=== PATIENT | female | born 1995 | race African-American/Black ===

== ENCOUNTER 2018-08-10 05:06 | Day surgery (SDC) | payer OTHER ==
[2018-08-07 13:40] VITALS: BMI 38.2
[2018-08-10] MEDS ORDERED: IBUPROFEN 800 MG/8 ML IJ IVPB PRN (15:01)
--- NOTE | 2018-08-10 15:01 | HP ---
History & Physical Update - History History: No Change - Physical Physical: No Change - Assessment Assessment: No Change - Plan Plan: No Change (Agree with H&P from 08/08/18)
[2018-08-10] MEDS ORDERED: MIDAZOLAM HCL 2 MG/2 ML SINGLE DOSE VIAL ONE ×2 (15:10)
[2018-08-10] MEDS ORDERED: LACTATED RINGERS SOLUTION 1,000 ML IV SCH ×2 (15:15→20:15)
[2018-08-10] MEDS ORDERED: PROPOFOL 20 ML ONE (15:16)
[2018-08-10] MEDS ORDERED: ROCURONIUM BROMIDE 50 MG/5 ML VIAL ONE (15:17)
[2018-08-10] MEDS ORDERED: ACETAMINOPHEN INJECTION 100 ML IVPB ONE (17:31)
[2018-08-10] MEDS ORDERED: ACETAMINOPHEN 1000 MG/100 ML VIAL (NON FORMULARY) IVPB ONE (17:44)
--- NOTE | 2018-08-10 17:49 | OP ---
<Sarbjit Stevenson - Last Filed: 08/14/18 12:19> Operative Note - Note: Operative Date: 08/10/18 Pre-Operative Diagnosis: Left ovarian cyst Operation: Laparoscopic Left ovarian cystectomy Findings: large 10cm left ovarian cyst (simple), Left dermoid cyst additional findings as dictated Post-Operative Diagnosis: Same as Pre-op Surgeon: Hanane Palencia Pcts: Sarbjit Stevenson Anesthesia: General Specimens Removed: left ovarian cyst sac, dermoid cyst Estimated Blood Loss (mls): 10 (ml) Fluid Volume Replaced (mls): 1 Operative Report Dictated: Yes <Hanane Palencia - Last Filed: 08/23/18 08:03> Operative Note - Note: Pre-Operative Diagnosis: dictation [id number]
[2018-08-10] MEDS ORDERED: ONDANSETRON 4 MG/2 ML VIAL ONE (17:56)
[2018-08-10] MEDS ORDERED: oxyCODONE HCL 5 MG TABLET ONE (17:56)
[2018-08-10 19:43] VITALS: BP 126/70; PULSE 83; TEMP 98
[2018-08-10] MEDS ORDERED: ONDANSETRON 4 MG/2 ML VIAL IVPUSH PRN (20:09)
[2018-08-10] MEDS ORDERED: oxyCODONE HCL 5 MG TABLET PO PRN ×2 (20:12)
--- NOTE | 2018-08-11 15:06 | SURG ---
Surgery Md [facility] Note [facility]: Sarbjit Stevenson PA-C (Suzy) Date of Service: 08/10/18 Diagnosis: Left ovarian cyst Procedure: Laparoscopic Left ovarian cystectomy I was present for the entirety of the operative procedure. For further detail, please refer to operative report. Visit type - Case Type Case Type: Scheduled - Emergency Emergency Visit: No - New patient This patient is new to me today: Yes Date on this admission: 08/11/18 - Critical Care Critical Care patient: No
--- NOTE | 2018-08-15 09:11 | PATH ---
Surgical Pathology Report Patient Name: NIKOLE DEAN [facility]. Rec. #: [id number] /Age/Gender: 1995 (Age: 22) / F Account: [id number] Location: AMBULATORY SURG Taken: 08/10/2018 Received: 08/11/2018 Reported: 08/15/2018 Physicians: Hanane Palencia M.D. Specimen(s) Received LEFT DERMOID OVARIAN CYST Clinical History Left ovarian cyst Final Diagnosis OVARY, CYST, LEFT, LAPAROSCOPIC CYSTECTOMY: OVARIAN TISSUE WITH MATURE CYSTIC TERATOMA (DERMOID CYST). Electronically Signed Tootie Ceballos M.D. Gross Description Received in formalin labeled "left dermoid ovarian cyst," is a 9.0 x 5.5 x 3.0 cm previously opened, non-intact cyst. The outer surface is fortune and smooth. The inner lining is fortune-brown and shaggy. There is abundant fortune sebaceous material received within the same container. No normal ovarian parenchyma is grossly identified. Dining Service Supervisor sections are submitted in 9 cassettes. /08/11/2018 saudi/08/11/2018
--- NOTE | 2018-08-23 10:37 | OP ---
DATE OF OPERATION: 08/10/2018 PREOPERATIVE DIAGNOSIS: Left ovarian cyst. POSTOPERATIVE DIAGNOSIS: Left ovarian cyst. PROCEDURE: Laparoscopic left ovarian cystectomy. SURGEON: Hanane Palencia DO [employer]EDNESS TRAINING OFFICER: ANESTHESIA: General. FINDINGS: Included a large left ovarian cyst, approximately 10 cm in size, with a smaller dermoid cyst also noted. Normal bilateral fallopian tubes. Normal right ovary. SPECIMENS REMOVED: Include left ovarian cyst. COMPLICATIONS: None. ESTIMATED BLOOD LOSS: 10 mL. DISPOSITION: Stable, to PACU. BRIEF HISTORY AND PROCEDURE: The patient is a 22-year-old female who had been seen in the office with complaint of a long-standing, large left ovarian cyst and desire for permanent removal. The patient was counseled on her options and elected to undergo laparoscopic removal of the cyst. The patient was admitted to [facility] on August 10, 2018. She was then taken back to the operating room, after consents were signed, given general anesthesia, and placed in the dorsal lithotomy position. A Cruz catheter was placed under sterile conditions. She was prepped and draped in the usual sterile fashion and a hard timeout was performed. A 5-mm skin incision was created in the umbilicus, a Veress needle placed intra-abdominally, and CO2 gas was insufflated. A 5-mm trocar was placed intra-abdominally. The camera was then placed into the abdomen. After confirmation of intra-abdominal placement, two bilateral 5-mm lower quadrant trocars were placed under direct visualization. The cyst on the left ovary was identified, elevated, and an incision was made on the ovarian stroma. The cyst wall was carefully dissected away from the ovarian stroma using sharp and blunt dissection. During dissection, the cyst was ruptured and the fluid was irrigated and suctioned with a suction device. After dissection of the cyst wall away from the ovarian tissue, at the base of the cyst was noted to be another cyst which appeared to be a dermoid cyst. This was grasped, elevated, and dissected away from the ovarian tissue, and resected using the LigaSure device at its base. The ovarian dermoid cyst and cyst wall were placed in the cul-de-sac at this time. The right lower quadrant incision was extended to accommodate an 11-mm trocar and an Endo Catch bag was inserted. The ovarian cyst wall and dermoid cyst were removed via the Endo Catch bag without difficulty through the -mm port. The pelvis was copiously suctioned and irrigated. The left ovary was examined. Bilateral tubes were noted to be normal. The right ovary was noted to be normal. The left ovarian tissue that remained was noted to be normal. The 10-mm skin incision was closed using a Thor-Nayana device, being sure that the fascial layer was closed with a single stitch interrupted. The trocars were then removed from the abdomen after the abdomen was desufflated. The skin was reapproximated using subcuticular stitches and skin glue. The patient was awoken from anesthesia, Cruz catheter was removed, and she was recovering in stable condition in the PACU after the procedure. HANANE PALENCIA DO /[id number]
== END 2018-08-10 19:45 | disposition home or self-care (01) ==
LOC: JASUSAT 05:06
PROVIDERS: ATTEND Obstetrics & Gynecology
PROC: 0UB14ZZ Excision of Left Ovary, Percutaneous Endoscopic Approach (ICD-10-PCS; principal; 2018-08-10 14:00)
DX: N83.202 Unspecified ovarian cyst, left side (principal)
CPT/HCPCS: 86850; 86900; 86901; 88305-TC; 94760; J0131